=== PATIENT | female | born 1975 ===

== ENCOUNTER 2017-03-24 13:44 | Emergency (ER) | payer BC ==
[2017-03-24 14:27] VITALS: BP 128/80; PULSE 58; RESP 16; TEMP 98; O2SAT 100
--- NOTE | 2017-03-24 14:40 | ED PDOC ---
HPI: General Adult Time Seen by Provider: 03/24/17 14:28 Chief Complaint (Nursing): Eye Problem Chief Complaint (Provider): Eye Problem History Per: Patient History/Exam Limitations: no limitations Onset/Duration Of Symptoms: Other (x1 week) Current Symptoms Are (Timing): Still Present Recently: Treated By A Physician Additional Complaint(s): 42 year old female presents to ED with complaints of left eye pain x1 week and has no past medical history. (+) swelling and erythema. (-) fever, trauma, visual changes. Notes that she went to urgent care and symptoms were not mitigated with instructed warm compresses and bacitracin. Patient reports then seeing her plc engineer who prescribed her Keflex 250 Q6. Notes improvement in symptoms overall, but woke up today with worsening symptoms, prompting ED evaluation. PCP: Non [facility] Past Medical History Reviewed: Historical Data, Nursing Documentation, Vital Signs Vital Signs: Last Vital Signs Temp 98.0 F 03/24/17 14:24 Pulse 58 L 03/24/17 14:24 Resp 16 03/24/17 14:24 BP 128/80 03/24/17 14:24 Pulse Ox 100 03/24/17 14:40 - Medical History PMH: No Chronic Diseases - Surgical History Surgical History: No Surg Hx - Family History Family History: States: No Known Family Hx - Home Medications Home Medications: Ambulatory Orders Medication Instructions Recorded Erythromycin 0.5% [Erythromycin] 1 applic LEFTEYE Q6 #1 tube 03/24/17 Sulfamethoxazole/Trimethoprim 2 tab PO BID #28 tab 03/24/17 [Bactrim DS 800 mg-160 mg] - Allergies Allergies/Adverse Reactions: Allergies Allergy/AdvReac Type Severity Reaction Status Date / Time No Known Allergies Allergy Verified 03/24/17 14:23 Review of Systems ROS Statement: Except As Marked, All Systems Reviewed And Found Negative Constitutional: Negative for: Fever Eyes: Positive for: Pain (left eye), Redness (left eye), Other ((+) swelling to left eye). Negative for: Vision Change Physical Exam - Reviewed Nursing Documentation Reviewed: Yes Vital Signs Reviewed: Yes - Physical Exam Appears: Positive for: Non-toxic, No Acute Distress Skin: Positive for: Normal Color, Warm, Dry Eye Exam: Positive for: EOMI (no pain), PERRL. Negative for: Normal appearance (left upper eyelid has mild swelling and erythema. 1 pustule on eyelid.), Periorbital tenderness, Conjunctival injection Neurologic/Psych: Positive for: Alert, Oriented. Negative for: Motor/Sensory Deficits - ECG O2 Sat by Pulse Oximetry: 100 (RA) Pulse Ox Interpretation: Normal Medical Decision Making Medical Decision Makin Initial impression: nella Scribe Attestation: Documented by Kayla Stanley, acting as a scribe for Bhavik Rivas PA-C. Provider Scribe Attestation: All medical record entries made by the Scribe were at my direction and personally dictated by me. I have reviewed the chart and agree that the record accurately reflects my personal performance of the history, physical exam, medical decision making, and the department course for this patient. I have also personally directed, reviewed, and agree with the discharge instructions and disposition. Disposition - Clinical Impression Clinical Impression: Stye - Patient ED Disposition Is Patient to be Admitted: No - Disposition Referrals: [facility] [Outside] Disposition: Routine/Home Disposition Time: 14:37 Condition: STABLE Additional Instructions: Apply warm compresses to affected eye. Follow up with your plc engineer for further evaluation. Prescriptions: Erythromycin 0.5% [Erythromycin] 1 applic LEFTEYE Q6 #1 tube Sulfamethoxazole/Trimethoprim [Bactrim DS 800 mg-160 mg] 2 tab PO BID #28 tab Instructions: Braulio (ED) Forms: Lorenzo Ruiz (Bulgarian), [facility] ED School/Work Excuse
== END 2017-03-24 15:11 | disposition home or self-care (01) ==
LOC: H.ER 13:44
DX: H00.024 Hordeolum internum left upper eyelid (principal)